=== PATIENT | female | born 1970 | race Caucasian/White ===

== ENCOUNTER → 2021-09-24 | Day surgery (SDC) | payer OTHER ==
[~2021-09-24] VITALS: Ht 175.3 cm; Wt 115.2 kg
[~2021-09-24] MED LIST: ADVIL200 M1 PO; CELEXA40 MG PO; DICLOFENAC POTA50 MG PO; FLEXERIL5 MG PO; HCTZ12.5 MG PO; LISINOPRIL40 MG PO; ONE-A-DAY ESSE1 EACH PO; PRILOSEC20 MG PO; PROAIR HFA8.5 GM INH; SINGULAIR10 MG PO; TOPROL XL 50 MG50 MG PO; ULTRAM50 MG PO; VITAMIN D3125 MCG PO; ZETIA10 MG PO; ZYRTEC10 M3 PO
[2021-09-24 09:12] LABS: HCG (URINE) SCREEN NEGATIVE (NEGATIVE)
[2021-09-24 09:44] LABS: EOSINOPHIL 2.1 % (0-5); HCT 36.1 % (37.0-47.0); HGB 11.5 g/dl (12.5-16.0); LYMPHOCYTE 35.6 % (15-48); MCHC 31.9 g/dL (32.0-36.0); MCV 84.7 fL (78.0-100.0); MONOCYTE 7.9 % (0-12); NRBC 0; PLT 326 K/uL (150-400); RBC 4.26 M/uL (4.20-5.40); RDW 16.3 % (11.5-14.0); WBC 8.1 K/uL (4.0-10.5)
[2021-09-24 09:49] LABS: BUN/CREAT RATIO (CALC) 28.1 RATIO; CREATININE 0.64 mg/dL (0.51-0.95); POTASSIUM 4.3 mmol/L (3.5-5.1)
== END | disposition home or self-care (01) ==
LOC: FAS 08:52
PROVIDERS: Anesthesiology; Oral & Maxillofacial Surgery
DX: K02.9 Dental caries, unspecified (principal); K04.7 Periapical abscess without sinus; I42.0 Dilated cardiomyopathy; I11.0 Hypertensive heart disease with heart failure; I50.9 Heart failure, unspecified; K21.9 Gastro-esophageal reflux disease without esophagitis; E66.01 Morbid (severe) obesity due to excess calories; G47.30 Sleep apnea, unspecified; J44.9 Chronic obstructive pulmonary disease, unspecified; E78.5 Hyperlipidemia, unspecified; F39 Unspecified mood [affective] disorder; F17.210 Nicotine dependence, cigarettes, uncomplicated; Z99.89 Dependence on other enabling machines and devices; Z68.37 Body mass index [BMI] 37.0-37.9, adult; Z79.82 Long term (current) use of aspirin; Z79.899 Other long term (current) drug therapy
CPT/HCPCS: D7140 ×2; D7210; 36415; 71045; 80048; 84703; 85025; 93005; J1100; J2250; J2405; J2704; J3010; J7120; Q0169